=== PATIENT | female | born 1980 | race Caucasian/White ===

== ENCOUNTER 2021-08-17 18:23 | Emergency (ER) | payer SELFPAY ==
[~2021-08-17] VITALS: Ht 157.5 cm; Wt 61.7 kg
[2021-08-17 18:34] VITALS: BP 117/91
--- NOTE | 2021-08-17 18:41 | NUR ---
Pt ambulated to bed 04.
--- NOTE | 2021-08-17 18:42 | NUR ---
41 YO FEMALE BIBS WITH C/O OF DYSURIA, ITCHINESS, AND INFLAMMATION IN HER PELVIC REGION X3 DAYS AGO. PT DENIES ANY FEVER, CHILLS, N/V/D, AND LOWER BACK PAIN AT THIS TIME. A&OX4. VSS. URINE SAMPLE COLLECTED & PLACED IN GOWN. PMH: DENIES NKA
--- NOTE | 2021-08-17 19:16 | NUR ---
REPORT AND CONTINUATION OF CARE GIVEN TO HIRAL CARRENO.
--- NOTE | 2021-08-17 19:16 | NUR ---
REPORT RECEIVED FROM HIRAL CONTI FOR CONTINUITY OF PATIENT CARE. AT THIS TIME.
--- NOTE | 2021-08-17 19:20 | NUR ---
Female [employer] accompanied female patient for GROIN AREA Exam. PATIENT LAYING IN BED IN SUPINE POSITION FOR GROIN AREA EXAM. LESIONS NOTED TO INNER LABIA, PATIENT W C/O PAIN, ITCHING AND STINGING SENSATION ON LESION AREA.
[2021-08-17] MEDS ORDERED: PYR100 PO (19:34)
[2021-08-17] MEDS ORDERED: NITR100C7 PO (19:34)
[2021-08-17] MEDS ORDERED: FLUC150T PO (19:34)
[2021-08-17 19:44] VITALS: BP 117/91
--- NOTE | 2021-08-17 19:44 | NUR ---
Patient discharged with v/s stable. Written and verbal after care instructions given and explained. Patient alert, oriented and verbalized understanding of instructions. Ambulatory with steady gait. All questions addressed prior to discharge. ID band removed. Patient advised to follow up with PMD. Rx of FLUCONAZOLE, MACROBID, PYRIDIUM given. Patient educated on indication of medication including possible reaction and side effects. Opportunity to ask questions provided and answered.
== END 2021-08-17 19:44 | disposition home or self-care (01) ==
LOC: MED 18:23
DX: N39.0 Urinary tract infection, site not specified (principal); N76.0 Acute vaginitis; Z79.899 Other long term (current) drug therapy
CPT/HCPCS: 81002; 81025; 87086; 99283